=== PATIENT | female | born 1955 | race Caucasian/White ===

== ENCOUNTER 2021-02-23 05:39 | Inpatient (IN) ==
--- NOTE | 2021-02-09 15:47 | PAT Medication Instructions ---
Medication Instructions Date of Service February 09, 2021 Home Medications trazodone 150 mg tablet 150 mg PO HS venlafaxine 150 mg capsule,extended release 24 hr 150 mg PO QAM potassium chloride 20 mEq tablet,extended release(part/cryst) 20 meq PO QAM Keto 2 cap PO HS bumetanide 1 mg tablet 1 mg PO QAM ibuprofen 200 mg tablet 400 - 600 mg PO Q6H PRN ASK your surgeon for instructions ibuprofen 200 mg tablet 400 - 600 mg PO Q6H PRN STOP taking 2 weeks before surgery (or as soon as possible if surgery is within 2 weeks) Keto 2 cap PO HS DO NOT take the morning of surgery potassium chloride 20 mEq tablet,extended release(part/cryst) 20 meq PO QAM bumetanide 1 mg tablet 1 mg PO QAM Take morning of surgery With a small sip of water, OTHERWISE NOTHING TO EAT OR DRINK AFTER MIDNIGHT: venlafaxine 150 mg capsule,extended release 24 hr 150 mg PO QAM Take evening before surgery trazodone 150 mg tablet 150 mg PO HS Other Notes If you have any questions please call us at [phone] or [phone] or [phone] or [phone]
--- NOTE | 2021-02-13 13:52 | Anesthesiology Consultation ---
Date of Service February 13, 2021 Assessment & Plan (1) Encounter for pre-operative examination: - COVID screening: Per assessment on 02/13: Travel screen negative, no known COVID-19 positive contacts or current COVID-19 related symptoms. Surgeon arr anging preop COVID testing. Awaiting results. - PCP office visit (02/08/21): "Medically cleared for surgery pending pre-op labs/studies.. leg edema.. stable, continue current medications." Chart Review Chart Review: Acceptable Risk for Surgery (pending surgeon-ordered cardiology clearance) and Patient seen in Pre Admission Testing Teaching & Discussion Pre-Anesthesia Teaching/Discussion Notes: Instructed NPO after midnight before surgery,except medications with 15 cc of water. Medication instructions provided according to the PAT guidelines. History Surgery Operation Date: 02/23/21 09:00 Proposed Procedures p Robotic Laparoscopic Assisted Partial Left Nephrectomy - Fernandez Robles, Height/Weight Height: 5 ft 4 in Weight: 106.3 kg Allergies Allergy/AdvReac Type Severity Reaction Status Date / Time No Known Allergies Allergy Verified 02/07/21 10:41 Medications Home Medications Medication Instructions Recorded Confirmed Last Taken trazodone 150 mg tablet 150 mg PO HS 11/12/18 02/07/21 Unknown venlafaxine 150 mg 150 mg PO QAM 11/12/18 02/07/21 Unknown capsule,extended release 24 hr potassium chloride 20 mEq 20 meq PO QAM 02/01/21 02/07/21 Unknown tablet,extended release(part/cryst) Keto 2 cap PO HS 02/07/21 02/07/21 Unknown bumetanide 1 mg tablet 1 mg PO QAM 02/07/21 02/07/21 Unknown ibuprofen 200 mg tablet 400 - 600 mg PO Q6H PRN 02/07/21 02/07/21 Unknown Past Medical History Medical History Anxiety and depression GERD (gastroesophageal reflux disease) Lower extremity edema Reason for bumex Obesity Osteoarthritis Renal mass Left Exercise / Class Metabolic Activity II 4-5 Yardwork/Stairs/Walk up hill Past Family History Family History Brother Family history of diabetes mellitus Other No family history of adverse response to anesthesia No pertinent family history in first degree relatives Past Surgical History Surgical History H/O ovarian cystectomy H/O total hysterectomy History of appendectomy History of cataract surgery R/L History of section x1 History of colonoscopy History of open reduction and internal fixation (ORIF) procedure Left tibia Right femur History of tonsillectomy History of tooth extraction Past Anesthesia History No Hx of Anesthesia Complications and No Family Hx of Anesthesia Complications History of PONV No Hx of PONV and No Hx of Motion Sickness Social History Smoking Status: Current every day smoker tobacco type: cigarettes Smoking cigarettes per day: 10 cigs/day Do You Dip or Chew Tobacco: No Hx Alcohol Use: No Hx Substance Use: No substance use type: does not use Review of Systems + Palpitations (rare, stress-related). Patient denies chest pain, shortness of breath, dyspnea on exertion, fever, chills, cough, wheezing. Physical Exam Vital Signs VITALS BP 128/68 P 76 TEMP 98.6 SP02 96%RA RESP 16 PHYSICAL Full cervical extension range of motion. Full TMJ range of motion. TMD 3 finger breaths Mallampati Score 3 Dentition: upper/lower full plates Lungs: clear throughout to auscultation Cardiac: regular rate and rhythm, no murmurs noted Spine: normal Carotid arteries: negative bruit Extremities: no edema Thick neck Lab Results Anesthesia Preop Results Results Anesthesia Widget: WBC 9.44 K/uL (4.8-10.8) 02/13/21 Hgb 14.0 g/dL (12.0-16.0) 02/13/21 Hct 43.5 % (37-47) 02/13/21 Plt 370 K/uL (130-400) 02/13/21 Na 139 mmol/L (136-145) 02/13/21 K 4.4 mmol/L (3.5-5.1) 02/13/21 Cl 110 mmol/L (98-107) H 02/13/21 CO2 27 mmol/L (21-32) 02/13/21 BUN 26 mg/dl (7-18) H 02/13/21 Creat 0.99 mg/dl (0.6-1.2) 02/13/21 Glucose Level 94 mg/dl (70-99) 02/13/21 Urine Color Yellow 02/13/21 Urine Appearance Clear (Clear) 02/13/21 Urine pH 6.0 (4.5-7.5) 02/13/21 Urine Specific [place] 1.021 (1.000-1.030) 02/13/21 Urine Protein Negative (Negative) 02/13/21 Urine Glucose (UA) Negative (Negative) 02/13/21 Urine Ketones Negative (Negative) 02/13/21 Urine Blood 3+ (Negative) H 02/13/21 Urine Nitrite Negative (Negative) 02/13/21 Urine Bilirubin Negative (Negative) 02/13/21 Urine Urobilinogen Negative (Negative) 02/13/21 Urine Leukocyte Esterase Negative (Negative) 02/13/21 Urine WBC (Auto) 1-5 /hpf (0-5) 02/13/21 Urine RBC (Auto) 5-10 /hpf (0-4) H 02/13/21 Urine Hyaline Casts (Auto) 1-5 /lpf (0-5) 02/13/21 Urine Epithelial Cells (Auto) >30 /lpf (0-5) H 02/13/21 Urine Bacteria (Auto) 1+ (Negative) H 02/13/21 Blood Type A Positive 02/13/21 Antibody Screen NEGATIVE 02/13/21 Testing Electrocardiogram Date: 02/13/21 Findings: + NSR @ (66) Other Testing Chest CT (12/14/20) Several tiny left lung nodules, largest measuring 4 mm. Emphysema. 3.7 cm mixed density exophytic lesion posterior upper pole cortex of the left kidney.
[2021-02-23] MEDS ORDERED: LR 15ML/HR IV SCH (06:00)
[2021-02-23] MEDS ORDERED: ceFAZolin 2000MG 2,000 MG/15 ML SYR IV SCH (06:00)
[2021-02-23] MEDS ORDERED: HYDROmorphone INJ 2 MG/ML SYR/VIAL IV PRN (07:00)
[2021-02-23] MEDS ORDERED: ATROPINE SULFATE 0.1 MG/ML 10ML SYR IV PRN (07:00)
[2021-02-23] MEDS ORDERED: ePHEDrine sulfate 50 MG/ML AMP IV PRN (07:00)
[2021-02-23] MEDS ORDERED: fentaNYL citrate 100 MCG/2 ML VIAL IV PRN (07:00)
[2021-02-23] MEDS ORDERED: ONDANSETRON INJ 2 MG/ML 2 ML VIAL IV PRN ×2 (07:00→15:51)
[2021-02-23] MEDS ORDERED: BUPIVACAINE 0.5 % 5 MG/1 ML MPF 30ML VIAL ONE (07:06)
--- NOTE | 2021-02-23 07:11 | History & Physical Bridge Note ---
Date of Service February 23, 2021 History & Physical Bridge Note I have examined the patient, reviewed the History & Physical and in the interval since the performance of the History & Physical I have noted the following changes of clinical significance: no changes noted
[2021-02-23] MEDS ORDERED: ROCURONIUM BROMIDE 10 MG/ML 5 ML VIAL IV ONE ×8 (07:12→11:52)
[2021-02-23] MEDS ORDERED: PROPOFOL IV EMULSION 10 MG/ML 20 ML VIAL IV ONE (07:12)
[2021-02-23] MEDS ORDERED: fentaNYL citrate 100 MCG/2 ML VIAL ONE (07:13)
[2021-02-23] MEDS ORDERED: MIDAZOLAM HCL 1 MG/ML 2ML VIAL ONE (07:13)
[2021-02-23] MEDS ORDERED: ONDANSETRON INJ 2 MG/ML 2 ML VIAL ONE ×2 (07:16→12:11)
[2021-02-23] MEDS ORDERED: ePHEDrine sulfate 50 MG/ML SYR ONE (08:29)
[2021-02-23] MEDS ORDERED: PHENYLEPHRINE 100MCG/ML 5ML SYR ONE (08:29)
[2021-02-23] MEDS ORDERED: HYDROmorphone INJ 2 MG/ML SYR/VIAL ONE (10:10)
[2021-02-23] MEDS ORDERED: SURGICEL ABSORB HEMOSTAT 2IN X 14IN TOP ONE ×2 (10:13→11:44)
[2021-02-23] MEDS ORDERED: TISSEEL FIBRIN SEALANT 10ML TOP ONE (11:44)
[2021-02-23] MEDS ORDERED: FLOSEAL HEMOSTATIC MATRIX 10ML TOP ONE (11:44)
[2021-02-23] MEDS ORDERED: GLYCOPYRROLATE 0.2 MG/ML VIAL ONE (11:51)
[2021-02-23] MEDS ORDERED: NEOSTIGMINE METHYLSULFATE 1 MG/ML 10ML VIAL ONE (11:51)
--- NOTE | 2021-02-23 12:35 | Operative Report ---
PG Post Operative Report Pre & Post Diagnosis Operation Date: 02/23/21 07:30 Pre-Op Diagnosis: Left Renal Mass, Left Adrenal Mass Post-Op Diagnosis: Left Renal Mass, Left Adrenal Mass I identified the patient and participated in the time-out.: Yes Procedure Operation Date: 02/23/21 07:30 Actual Procedures p Robotic Assisted Laparoscopic Left Partial Nephrectomy and Left Adrenalectomy - Fernandez Robles, Surgeon Fernandez Robles, II, DO Exhibit [employer] Estimated Blood Loss 60 Findings Consistent with Post-Op Diagnosis Posterior Upper pole renal mass on left with complex renal vein. Large Left Adrenal Mass Specimens Renal mass. Adrenal Gland/Mass Drains 18 Fr Benito catheter. Anesthesia Type General Complications none Disposition Disposition: Recovery Room Indications Patient with enhancing left renal mass and large left adrenal mass >4cm. 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 Did not have any significant elevation of plasma free metanephrines. Risk and benefits were discussed at length. Patient elected to undergo robotic assisted laparoscopic partial nephrectomy. Description of Procedure The patient was brought to the operative suite and placed under general endotracheal intubation anesthesia in the supine position. The patient was tr ansferred to the lateral position with the operative side up. At this point, the patient prepped and draped in the usual sterile fashion and a timeout was completed. Preoperative antibiotics of Ancef 2 grams had been given. JESUS MANUEL's and SCD's were placed on the patient's lower extremities. A catheter was placed using sterile technique. With the time out completed the patient was flexed and the skin was marked. The lateral camera port site was anesthetized. A small incision was made into the skin and subcutaneous tissues. A Varess needle was selected and placed. The needle was easily moved and it was irrigated and aspirated without any issues or concerns for placement. Insufflation commenced. Once insufflated, A camera port was placed. The cavity was insufflated to 12-15 mmHG. A laparoscopic camera was placed and the abdominal cavity inspected. No bleeding, injury, or other concerning features were noted. At this point, the skin was marked for port placement and 3 x 8mm working ports were placed. The skin was anesthetized down to fascia and an approx 1cm incision was made to place the 3 x 8mm ports. Two 12 mm university administrative assistant ports were also placed in similar fashion under direct visualization in the midline superior to the umbilicus. The robot was positioned and docked. The camera was placed and all trocars were positioned under direct visualization. ROSLYN Wilcox was integral in port placement, camera utilization, and docking procedure. She remained in sterile attire and then proceeded to assist the remainder of the case. Dr. Mohsen Nova was readily available for assistance during clark portions of the proceeding procedure. Dr. Nova assumed the assistant press operator offset role for the major portion of renal mass removal, vessel clamping, and closure of the kidney. At this point, I transitioned to the robotic console. The colon was mobilized medially to expose the retroperitoneum and the area assessed. Adhesions were freed to allow mobilization. A small amount of adhesions were noted from the colon and were freed. These were dissected with blunt technique. Cautery was used to assist dissection and control bleeding. The retroperitoneal fat was assessed. The ureter and gonadal vein were identified. The ureter was isolated and dissection was taken superiorly. This was followed to the renal pelvis. The Renal Artery and Vein were then cleaned and exposed. The renal vein was found to be significantly complex with multiple branches. The adrenal vein was isolated and fully exposed. This was dissected and freed moving towards the large left adrenal mass. The adrenal mass was fully assessed. After full exposure of the adrenal vein coming off of the left renal vein, the anesthesia team was alerted and had been adequately hydrating the patient. The adrenal vein was then clipped with hemolock clips x3. No change in blood pressure heart rate or other vascular response after clipping the adrenal vein. This was then cut and the adrenal gland was dissected moving across the posterior and inferior border. Multiple small vessels were ligated and cauterized. No considerable issues or problems. Moderate amount of adhesion was found to the lateral inferior portion. These were then freed. Care was taken to dissect completely around the posterior and inferior section. The superior section was then dissected free taking care to avoid excess manipulation near the spleen and the posterior portion. No major areas of bleeding. Again at the lateral border there was more significant adhesions to the spleen and abdominal wall. These were all freed. The adrenal mass and adrenal gland were then secured in a Endo Catch bag and attention was taken back to the renal vasculature. A Surgicel hemostatic sheet was placed in the adrenal wound bed. The renal vein and artery were then assessed and good clamp placement was assessed and good access was achieved. The ultrasound probe was then placed into the abdomen to further assess the location of the renal mass. The mass was found to be considerably more posterior and superior than expected with the patient in the lateral position. Due to this, in order to excise the mass the kidney would need to be flipped on its axis. Careful dissection was then used in order to free the splenorenal attachments as well as the lateral edge. The entire kidney was dissected and mobilized with the perirenal fat remaining in place. Once the kidney was able to be flipped on its axis the ultrasound probe was able to identify the mass and considerably better angle and access was achieved. The perirenal fat directly lateral to the kidney mass was then dissected. The mass and surrounding tissues were exposed. The kidney was then further mobilized. The ultrasound probe was placed and the mass further examined. The edges were marked. Dr. Nova was utilized as a assistant press operator offset for this portion starting with the placement of clamps until closure of the nephrotomy. The Vessels were assessed a final time. 2 x Bulldog clamps were placed on the artery as well as a early branch of the renal artery and 1 x Bulldog clamp on the vein medial to the branches. The kidney appropriately blanched. The previously marked margins were used to start the incision into the kidney. The mass was completely excised without evidence of penetrating into the capsule of the mass. The base of resection bed was assessed and small vessels were cauterized. The collecting system did not appear to be opened in any area. A barbed suture was selected and the nephrotomy closed. 3-0 Vicryl sutures were then used to close the edges of the elliptical opening. A total of 2 x vicryl sutures were used to close and bolster the edges. At this point, the bulldog clamps were removed. Warm ischemia time, in total, was 20 minutes. The kidney was full assessed after removal of clamps. No bleeding or other major areas of concern. Weck and Hemolock clips were used to bolster and tightened to approximate the edges. Surgicel hemostatic agent sheets were placed along the adrenal wound bed and on the incised kidney edge. Tisseel and FloSeal hemostatic agents were also placed. These hemostatic agent was also placed on the vessels. No major bleeding or other issues. Gerota's tissues were replaced utilizing clips to cover the area. The excised mass was placed in an endocatch bag for removal. The entire dissection space was inspected one final time. No bleeding or injuries or areas of concern were noted. No tumor or other concerning features were noted. At this point, the robot was undocked and moved away from the patient. The port sites were all assessed laparoscopically. The endoscopic bag was moved into the lower university administrative assistant port. The 2 x 12 mm port sites in the midline were then marked and the incisions connected. The other ports were assessed and no issues observed. The university administrative assistant ports were pened further exposing fascia which was then opened in order to removed the mass within the bag. A running 1-0 PDS suture was used to close fascia. A 0 Vicryl was used to close the subcutaneous fat/tissues. The skin at each site was closed with a stapler. The area was cleaned and bandages placed on each incision. The patient was cleaned and bandaged. The patient was moved back into the supine position The patient was cleaned, aroused from anesthesia, and transferred to the pacu in stable condition having tolerated the procedure well with no complications. I was present and participated in all aspects of the procedure. Mohsen Nova MD was integral in the major portion of the procedure as above. ROSLYN Wilcox was critical in the portions as mentioned above. Will plan to observe postoperatively and monitor. Benito to be removed in the morning. I attest to the content of the Intraoperative Record and any orders documented therein. Any exceptions are noted below.
[2021-02-23 13:16] LABS: Basophils # (auto) 0.02 K/uL (0-0.2); Basophils % (auto) 0.1 %; Hematocrit (blood only) 41.2 % (37-47); Hemoglobin 13.1 g/dL (12.0-16.0); Immature Granulocytes # (auto) 0.06 K/uL (0.00-0.02); Immature Granulocytes % (auto) 0.3 %; Lymphocytes # (auto) 1.35 K/uL (1.2-3.4); Lymphocytes % (auto) 6.7 %; Mean Corpuscular Hemoglobin 30.8 pg (25-34); Mean Corpuscular Volume 96.9 fL (80-100); Mean Platelet Volume 9.4 fL (7.4-10.4); Monocytes # (auto) 1.06 K/uL (0.11-0.59); Monocytes % (auto) 5.2 %; Neutrophils # (auto) 17.71 K/uL (1.4-6.5); Neutrophils % (auto) 87.7 %; Platelet Count 341 K/uL (130-400); RDW Coefficient of Variation 14.9 % (11.5-14.5); RDW Standard Deviation 52.5 fL (36.4-46.3); Red Blood Count 4.25 M/uL (4.2-5.4)
[2021-02-23 13:19] LABS: Mean Corpuscular Hgb Conc 31.8 g/dL (32-36)
[2021-02-23 13:38] LABS: BUN Creatinine Ratio 12.8 (10-20); Calcium 8.2 mg/dl (8.5-10.1); Creatinine Clr Calc Pharmacy 48.2 ml/min; Est GFR (African American) 47.4 ml/min; Est GFR (Non-African American) 40.9 ml/min; Potassium 4.3 mmol/L (3.5-5.1)
[2021-02-23] MEDS ORDERED: ACETAMINOPHEN 1,000 MG/100 ML VIAL IV STA (14:40)
[2021-02-23] MEDS ORDERED: ACETAMINOPHEN 325 MG TAB PO PRN (15:51)
[2021-02-23] MEDS ORDERED: MoRPHine SULFATE 4 MG/ML 1 ML CARP\\VIAL IV PRN (15:51)
[2021-02-23] MEDS ORDERED: MoRPHine SULFATE 2 MG/ML CARP IV PRN (15:51)
[2021-02-23] MEDS ORDERED: POTASSIUM CHLORIDE CRTAB 20 MEQ TABCR PO SCH (15:51)
--- NOTE | 2021-02-23 15:58 | Anesthesiology Progress Note ---
Date of Service February 23, 2021 Anesthesia Post Procedure Vital Signs Vital Signs: Temp Pulse Pulse Resp BP Pulse Ox 02/23/21 15:15 36.8 C 87 18 117/67 94 02/23/21 15:05 36.9 C 81 20 119/59 L 94 02/23/21 14:55 86 18 109/53 L 94 02/23/21 14:45 90 20 94/69 L 95 02/23/21 14:35 84 20 127/55 L 96 02/23/21 14:25 86 19 109/62 97 02/23/21 14:15 36.7 C 85 16 143/56 H 96 02/23/21 14:05 87 16 124/64 97 02/23/21 13:55 85 12 137/54 L 95 02/23/21 13:45 81 16 126/49 L 91 02/23/21 13:35 79 20 129/53 L 93 02/23/21 13:25 77 22 129/53 L 96 02/23/21 13:15 77 26 H 133/56 L 95 02/23/21 13:05 73 20 127/49 L 96 02/23/21 12:55 73 20 125/52 L 97 02/23/21 12:48 36.1 C L 77 16 133/55 L 96 02/23/21 06:12 37.2 C 78 20 166/58 H 97 Pain Intensity Abdomen: Pain Intensity: 8 Transfer of Care Handoff Completed per policy Notes Mental Status: alert / awake / arousable and participated in evaluation Patient Amnestic to Procedure: Yes Nausea / Vomiting: adequately controlled Pain: adequately controlled Airway Patency, RR, SpO2: stable & adequate BP & HR: stable & adequate Hydration State: stable & adequate Anesthetic Complications: no major complications apparent and Pt Satisfied with anesthetic care
[2021-02-23] MEDS: LACTATED RINGER'S 1,000 ML IV SCH (16:09)
[2021-02-23] MEDS: ceFAZolin 2000MG 2,000 MG/15 ML SYR IV SCH (16:42)
[2021-02-23] MEDS: oxyCODONE HCL IR 5 MG TAB (IMMEDIATE RELEASE) PO PRN (18:09)
[2021-02-23] MEDS: NYSTATIN CR 15 GM TUBE EXT SCH (19:37)
[2021-02-23] MEDS: HEPARIN SOD 5,000 UNIT/0.5 ML VIAL SQ SCH (19:37)
[2021-02-23] MEDS: traZODone HCL 50 MG TAB PO SCH (19:37)
[2021-02-24] MEDS: oxyCODONE HCL IR 5 MG TAB (IMMEDIATE RELEASE) PO PRN ×3 (00:34→20:10)
[2021-02-24] MEDS: NICOTINE 14 MG/24 HR PATCH TD SCH ×2 (00:34→07:23)
[2021-02-24] MEDS: ceFAZolin 2000MG 2,000 MG/15 ML SYR IV SCH (00:35)
[2021-02-24] MEDS: LACTATED RINGER'S 1,000 ML IV SCH ×3 (01:55→23:34)
[2021-02-24] MEDS ORDERED: LR 15ML/HR IV SCH (06:00)
[2021-02-24] MEDS ORDERED: ceFAZolin 2000MG 2,000 MG/15 ML SYR IV SCH (06:00)
[2021-02-24] MEDS: NYSTATIN CR 15 GM TUBE EXT SCH ×2 (07:22→20:08)
[2021-02-24] MEDS: HEPARIN SOD 5,000 UNIT/0.5 ML VIAL SQ SCH ×2 (07:23→20:08)
[2021-02-24] MEDS: VENLAFAXINE HCL XR 150 MG CAPXR PO SCH (07:23)
[2021-02-24] MEDS: BUMETANIDE 1 MG TAB PO SCH (07:23)
--- NOTE | 2021-02-24 07:54 | Urology Progress Note ---
Date of Service February 24, 2021 Assessment & Plan (1) Adrenal mass: (2) Renal mass: Plan: 65 year-old female patient who is POD #1 robotic assisted laparoscopic left partial nephrectomy and left adrenalectomy with Dr. Robles. -Patient doing well post-procedure, clinically progressing as expected. -She is afebrile, vital signs stable. -Labs reviewed - white count improved, creatinine 1.55 this AM. -Plan to advance diet as tolerated. -Discontinue huynh catheter this AM. -Encourage ambulation and OOB to chair this AM. -Continue with pain control, supportive care, and close monitoring. -Will consult hospital medicine to assist in postoperative medical management. -Plan for home in 1-2 days presuming she continues to clinically progress. -Expected course reviewed with patient, all questions answered. Admission and Anticipated Discharge Date Admission Date: February 23, 2021 Subjective POD #1 robotic assisted laparoscopic left partial nephrectomy and left adrenalectomy with Dr. Robles. Patient examined at bedside this AM. She feels well overall post procedure. Alert and awake, comfortable. Reports pain as tolerable with PO pain medications. Discomfort is mostly in medial abdomen. Denies flank pain. Has not been out of bed since procedure. Denies fevers or chills. Tolerating clear liquid diet without nausea or vomiting. Requesting more solid foods this AM. Has not passed flatus. Denies dizziness/lightheadedness. No chest pain or shortness of breath. Chart review: Afebrile, blood pressure and heart rate stable. Wbc 11.61 (previously 20.20) Hgb 11.7 Creatinine 1.55 (previously 1.34) Huynh output overnight 450cc. Denies additional urologic concerns today. Review of Systems Constitutional: as per Subjective / HPI; no fever and no chills Respiratory: as per Subjective / HPI Cardiovascular: as per Subjective / HPI Gastrointestinal: as per Subjective / HPI; no nausea and no vomiting Genitourinary: as per Subjective / HPI Physical Exam Constitutional: well developed and well nourished; no acute distress and not ill appearing Respiratory: normal respiratory effort and able to speak in complete sentences; no respiratory distress and no audible wheezes Gastrointestinal (Abdomen): Inspection/Auscultation: abdomen normal to inspection; abdomen not distended Percussion/Palpation: abdomen nontender and no guarding Skin: Incisions appropriate and well-approximated. Lacy intact without drainage, erythema, or warmth. Psychiatric: Orientation: alert, oriented x 3 and cooperative Affect: euthymic affect Genitourinary: Huynh catheter draining clear yellow urine. Results & Data ([facility]) Vital Signs (Past 12 Hours) Vital Signs Temp Pulse Pulse Resp BP Pulse Ox 02/24/21 04:00 37.5 C 87 20 127/55 L 94 02/23/21 23:00 100 H 02/23/21 22:51 37.2 C 91 H 20 108/62 92 PG Care Time/CCT Total # of Minutes Spent Total Time Spent with Patient: Total time spent is greater than 50% in coordination of care (as documented) at patient's floor/unit and/or counseling patient: Coding Level of Care Code None Diagnoses Adrenal mass E27.8 Renal mass N28.89
[2021-02-24 08:44] LABS: Basophils # (auto) 0.01 K/uL (0-0.2); Basophils % (auto) 0.1 %; Hematocrit (blood only) 37.6 % (37-47); Hemoglobin 11.7 g/dL (12.0-16.0); Immature Granulocytes # (auto) 0.02 K/uL (0.00-0.02); Immature Granulocytes % (auto) 0.2 %; Lymphocytes # (auto) 2.67 K/uL (1.2-3.4); Mean Corpuscular Hemoglobin 30.1 pg (25-34); Mean Corpuscular Hgb Conc 31.1 g/dL (32-36); Mean Corpuscular Volume 96.7 fL (80-100); Mean Platelet Volume 9.7 fL (7.4-10.4); Monocytes # (auto) 0.88 K/uL (0.11-0.59); Monocytes % (auto) 7.6 %; Neutrophils # (auto) 8.03 K/uL (1.4-6.5); Neutrophils % (auto) 69.1 %; Platelet Count 313 K/uL (130-400); RDW Coefficient of Variation 15.1 % (11.5-14.5); RDW Standard Deviation 53.7 fL (36.4-46.3); Red Blood Count 3.89 M/uL (4.2-5.4); White Blood Count 11.61 K/uL (4.8-10.8)
[2021-02-24] MEDS ORDERED: NICOTINE 14 MG/24 HR PATCH TD SCH (09:00)
[2021-02-24 09:09] LABS: BUN Creatinine Ratio 11.3 (10-20); Calcium 7.9 mg/dl (8.5-10.1); Creatinine Clr Calc Pharmacy 44.3 ml/min; Est GFR (African American) 39.7 ml/min; Est GFR (Non-African American) 34.3 ml/min; Potassium 3.9 mmol/L (3.5-5.1)
--- NOTE | 2021-02-24 10:59 | Hospitalist Consultation ---
Date of Consultation February 24, 2021 Assessment & Plan (1) Adrenal mass: Patient underwent robotic laparoscopic assisted left partial nephrectomy on 02/23/[address] Fernandez Robles. Certainly we will watch the patient is electrolytes in the blood pressure in the postoperative period currently her blood pressure stable and electrolytes are similarly stable (2) Anxiety and depression: Continue Effexor and trazodone at bedtime (3) Lower extremity edema: Deviously on Bumex and potassium patient's creatinine is trended upward will hold Bumex and follow urine creatinine, patient remains on lactated R amrit's (4) DVT prophylaxis: Surgery is elective for heparin for DVT prevention History of Present Illness Attending Physician: Fernandez Robles, II, DO History of Present Illness PT underwent robotic laparoscopic assisted left partial nephrectomy 02/23/21 for adrenal mass. Typically takes bumex and potassium, plus typically takes effexor and trazadone hs Patient has some bloating abdominal discomfort has flatus no bowel movement currently being medicated for pain by nursing staff Allergies Allergy/AdvReac Type Severity Reaction Status Date / Time No Known Allergies Allergy Verified 02/23/21 06:08 Home Medications Medication Instructions Recorded Confirmed Type trazodone 150 mg tablet 150 mg PO HS 11/12/18 02/23/21 History venlafaxine 150 mg 150 mg PO QAM 11/12/18 02/23/21 History capsule,extended release 24 hr potassium chloride 20 mEq 20 meq PO UD 02/01/21 02/23/21 History tablet,extended release(part/cryst) Keto 2 cap PO HS 02/07/21 02/23/21 History bumetanide 1 mg tablet 1 mg PO QAM 02/07/21 02/23/21 History ibuprofen 200 mg tablet 400 - 600 mg PO Q6H PRN 02/07/21 02/23/21 History Patient History Medical History (Updated 02/24/21 @ 11:08 by Rey Teresa MD) Anxiety and depression GERD (gastroesophageal reflux disease) Lower extremity edema Reason for bumex Obesity Osteoarthritis Renal mass Left Surgical History H/O ovarian cystectomy H/O total hysterectomy History of appendectomy History of cataract surgery R/L History of section x1 History of colonoscopy History of open reduction and internal fixation (ORIF) procedure Left tibia Right femur History of tonsillectomy History of tooth extraction Family History Brother Family history of diabetes mellitus Other No family history of adverse response to anesthesia No pertinent family history in first degree relatives Social History Smoking Status: Current every day smoker Cigarettes Per Day: 10 cigs/day; Second Hand Exposure: Yes; Do You Dip or Chew Tobacco: No; Tobacco Cessation Education Requested by Patient: No Hx Alcohol Use: No Hx Substance Use: No Preferred Language: Sinhala Visual Impairment: No Limitations Hearing Ability: Normal Economics Lecturer Required: No Beliefs That Will Affect Care: None Current Living Situation: Alone current occupational status: retired Feels Safe at Home: Yes Safety Concerns: Feels Safe At This Time Assistive Devices: None Assistive Devices Comment: READING GLASSES Review of Systems Review of Systems: Mild distress and fatigue no headache, no visual changes no speech or swallowing issues no chest pain, pressure or palpitations no shortness of breath, cough or wheezes Anterior abdominal pain dull in nature no nausea no vomiting constipation no dysuria, hematuria or frequency no focal joint pain or swelling Reminder back pain no CV angle tenderness no bruising, bleeding or rashes no focal signs of weakness or numbness or altered sensation no complaints of anxiety or depression.. Physical Exam Physical Exam: The patient appeared well nourished and normally developed. Vital signs as documented. Head exam is normocephalic atraumatic Neck is without JVD, thyromegaly, or carotid bruits. Lungs are clear to auscultation, no focal loss of breath sounds Cardiac exam, Rhythm is regular.. No murmurs, rubs or gallops. Abdominal exam reveals hypoactive to normal bowel sounds, soft mild tenderness no significant bruising Extremities are nonedematous and both pedal pulses are present Neurologic exam is alert and oriented, no focal loss of strength or sensation Skin is without bruises or rashes Psychologically is without concerns for anxiety or depression Results & Data Results & Data ([facility]) Vital Signs (Past 12 Hours) Vital Signs Temp Pulse Pulse Pulse Resp BP Pulse Ox 02/24/21 07:57 98.8 F 86 20 110/64 93 02/24/21 04:00 99.5 F 87 20 127/55 L 94 02/23/21 23:00 100 H PG Care Time/CCT Total # of Minutes Spent Total Time Spent with Patient: Total time spent is greater than 50% in coordination of care (as documented) at patient's floor/unit and/or counseling patient: Coding Level of Care Code 80325 Inpt Consult Level 3 Diagnoses Adrenal mass E27.8 Anxiety and depression F41.9; F32.9 Lower extremity edema R60.0 DVT prophylaxis Z29.9
[2021-02-24] MEDS: traZODone HCL 50 MG TAB PO SCH (20:09)
[2021-02-25] MEDS: oxyCODONE HCL IR 5 MG TAB (IMMEDIATE RELEASE) PO PRN ×2 (04:19→17:23)
[2021-02-25] MEDS ORDERED: POLYETHYLENE (MIRALAX) 17 GM PACK PO PRN (04:37)
[2021-02-25] MEDS ORDERED: bisacodyL 10 MG SUPP PR PRN (04:37)
[2021-02-25] MEDS ORDERED: bisacodyL 10 MG SUPP PR ONE (04:40)
[2021-02-25 05:54] LABS: Basophils # (auto) 0.02 K/uL (0-0.2); Basophils % (auto) 0.1 %; Eosinophils # (auto) 0.01 K/uL (0-0.5); Eosinophils % (auto) 0.1 %; Hematocrit (blood only) 35.3 % (37-47); Hemoglobin 11.3 g/dL (12.0-16.0); Immature Granulocytes # (auto) 0.05 K/uL (0.00-0.02); Immature Granulocytes % (auto) 0.3 %; Lymphocytes # (auto) 2.87 K/uL (1.2-3.4); Mean Corpuscular Hemoglobin 30.4 pg (25-34); Mean Corpuscular Volume 94.9 fL (80-100); Mean Platelet Volume 9.7 fL (7.4-10.4); Monocytes # (auto) 1.66 K/uL (0.11-0.59); Monocytes % (auto) 9.9 %; Neutrophils # (auto) 12.23 K/uL (1.4-6.5); Neutrophils % (auto) 72.6 %; Platelet Count 288 K/uL (130-400); RDW Coefficient of Variation 15.3 % (11.5-14.5); RDW Standard Deviation 53.9 fL (36.4-46.3); Red Blood Count 3.72 M/uL (4.2-5.4); White Blood Count 16.84 K/uL (4.8-10.8)
[2021-02-25 06:29] LABS: BUN Creatinine Ratio 11.8 (10-20); Creatinine Clr Calc Pharmacy 47.6 ml/min; Est GFR (African American) 43.1 ml/min; Est GFR (Non-African American) 37.2 ml/min; Potassium 3.8 mmol/L (3.5-5.1)
[2021-02-25] MEDS: VENLAFAXINE HCL XR 150 MG CAPXR PO SCH (08:27)
[2021-02-25] MEDS: NYSTATIN CR 15 GM TUBE EXT SCH ×2 (08:27→20:16)
[2021-02-25] MEDS: HEPARIN SOD 5,000 UNIT/0.5 ML VIAL SQ SCH ×2 (08:27→20:16)
[2021-02-25] MEDS: NICOTINE 14 MG/24 HR PATCH TD SCH (08:28)
[2021-02-25] MEDS ORDERED: POTASSIUM CHLORIDE CRTAB 20 MEQ TABCR PO SCH (09:00)
[2021-02-25] MEDS: LACTATED RINGER'S 1,000 ML IV SCH ×2 (09:41→09:42)
--- NOTE | 2021-02-25 10:24 | Urology Progress Note ---
Date of Service February 25, 2021 Assessment & Plan (1) Adrenal mass: (2) Renal mass: Plan: 65 year-old female patient who is POD #1 robotic assisted laparoscopic left partial nephrectomy and left adrenalectomy with Dr. Robles. - -Labs reviewed - white count worsening - 16 -Continue regular diet -Encourage ambulation and OOB to chair this AM. -Continue with pain control, supportive care, and close monitoring. -CXR, empiric ceftriaxone started -DC fluids Admission and Anticipated Discharge Date Admission Date: February 23, 2021 Subjective POD #1 robotic assisted laparoscopic left partial nephrectomy and left adrenalectomy with Dr. Robles. Patient examined at bedside this AM. Alert and awake, comfortable. Reports pain as tolerable with PO pain medications. Denies fevers or chills. Tolerating regular diet + Gas, small BM No chest pain or shortness of breath. Recieved ISB this AM voiding without issues Chart review: Afebrile, blood pressure and heart rate stable. Wbc - rising to 16 Denies additional urologic concerns today. Physical Exam Physical Exam: NAD labored breathing tachy soft, NT, dressing removed - incision c/d/i ext without edema, NT Results & Data ([facility]) Vital Signs (Past 12 Hours) Vital Signs Temp Pulse Pulse Pulse Resp BP Pulse Ox 02/25/21 07:49 91 H 02/25/21 07:00 36.9 C 99 H 20 143/74 H 85 L 02/25/21 04:08 37.1 C 100 H 20 130/77 90 02/25/21 00:18 37.7 C H 77 20 116/55 L 90 02/24/21 22:30 100 H PG Care Time/CCT Total # of Minutes Spent Total Time Spent with Patient: Total time spent is greater than 50% in coordination of care (as documented) at patient's floor/unit and/or counseling patient: Coding Level of Care Code None Diagnoses Adrenal mass E27.8 Renal mass N28.89
--- NOTE | 2021-02-25 10:25 | Hospitalist Progress Note ---
Date of Service February 25, 2021 Assessment & Plan (1) Respiratory failure with hypoxia: Plan: Patient is acute respiratory failure with hypoxia. She does have a significant tobacco use history. She may have beginnings of some COPD. She does not have significant hyperinflation on chest x-ray but there is some mild pulmonary vascular congestion. Her Bumex for which she states she takes for lower extremity edema was held in the perioperative period and she was given fluids postoperatively. Subsequently we will give her a 0.5 mg dose of Bumex now institute her normal 1 mg Bumex in the morning starting on 26 February. We will add Combivent Respimat 4 times daily and continue to encourage incentive spirometry (2) Adrenal mass: Plan: Patient underwent robotic laparoscopic assisted left partial nephrectomy on 02/23/[address] Fernandez Robles. Certainly we will watch the patient is electrolytes in the blood pressure in the postoperative period currently her blood pressure stable and electrolytes are similarly stable (3) Anxiety and depression: Plan: Continue Effexor and trazodone at bedtime (4) Lower extremity edema: Plan: Deviously on Bumex and potassium patient's creatinine is trended upward will hold Bumex and follow urine creatinine, patient remains on lactated Ringer's (5) DVT prophylaxis: Plan: Surgery is elective for heparin for DVT prevention Admission and Anticipated Discharge Date Admission Date: February 23, 2021 Subjective Patient states she feels relatively well however she is slightly hypoxic this morning. She does have a history of a significant smoker. She says she has been smoking increasing lately. Chest x-ray shows very slight pulmonary vascular congestion. Her Bumex has been held in the perioperative period. Review of Systems Review of Systems: Mild distress and fatigue no headache, no visual changes no speech or swallowing issues no chest pain, pressure or palpitations Some shortness of breath Continues with mild anterior abdominal pain dull in nature no nausea no vomiting constipation no dysuria, hematuria or frequency no focal joint pain or swelling Reminder back pain no CV angle tenderness no bruising, bleeding or rashes no focal signs of weakness or numbness or altered sensation no complaints of anxiety or depression.. Physical Exam Physical Exam: The patient appeared well nourished and normally developed. Vital signs as documented. Head exam is normocephalic atraumatic Neck is without JVD, thyromegaly, or carotid bruits. Lungs are minutes at the bases no significant rales or wheezes Cardiac exam, Rhythm is regular.. No murmurs, rubs or gallops. Abdominal exam reveals hypoactive to normal bowel sounds, soft mild tenderness no significant bruising Extremities are nonedematous and both pedal pulses are present Neurologic exam is alert and oriented, no focal loss of strength or sensation Skin is without bruises or rashes Psychologically is without concerns for anxiety or depression Results & Data Results & Data ([facility]) Vital Signs (Past 12 Hours) Vital Signs Temp Pulse Pulse Pulse Resp BP Pulse Ox 02/25/21 07:49 91 H 02/25/21 07:00 98.4 F 99 H 20 143/74 H 85 L 02/25/21 04:08 98.8 F 100 H 20 130/77 90 02/25/21 00:18 99.9 F H 77 20 116/55 L 90 02/24/21 22:30 100 H PG Care Time/CCT Total # of Minutes Spent Total Time Spent with Patient: Total time spent is greater than 50% in coordination of care (as documented) at patient's floor/unit and/or counseling patient: Coding Level of Care Code 35857 Subseq Hosp Care Lvl 3 Diagnoses Adrenal mass E27.8 Anxiety and depression F41.9; F32.9 Lower extremity edema R60.0 DVT prophylaxis Z29.9 Respiratory failure with hypoxia J96.91
[2021-02-25] MEDS ORDERED: cefTRIAXone SODIUM 2,000 MG in DEXTROSE 5% 50 ML IV SCH (11:00)
--- NOTE | 2021-02-25 11:17 | XRay Report ---
XR chest 2V PA/lateral HISTORY: 65 years-old Female rising wbc, cough leukocytosis with cough COMPARISON: CTA chest 11/12/2018 TECHNIQUE: PA and lateral views of the chest FINDINGS: Cardiac silhouette is enlarged. Trace right and small left pleural effusions with bibasilar opacities . No pneumothorax or overt pulmonary edema. Bones of the chest appear grossly intact. IMPRESSION: Small left and trace right pleural effusions with bibasilar opacities suggestive of atele ctasis versus pneumonitis. ACT 112: Negative or not required by law. The above report was generated using voice recognition software. It may contain grammatical, syntax o r spelling errors. Electronically signed by: Shabbir Royal M.D. 02/25/2021 11:16 AM
[2021-02-25] MEDS ORDERED: BUMETANIDE 0.5 MG in SYRINGE 0 ML IV ONE (11:45)
[2021-02-25] MEDS ORDERED: IPRATROPIUM BROMIDE/ALBUTEROL respimat INH INH SCH (13:00)
[2021-02-25] MEDS: ALBUTEROL HFA 8 GM INHALER INH SCH ×2 (15:12→20:25)
[2021-02-25] MEDS: IPRATROPIUM BROMIDE HFA INHALER INH SCH ×2 (15:13→20:25)
[2021-02-25] MEDS: traZODone HCL 50 MG TAB PO SCH (20:16)
[2021-02-26] MEDS: oxyCODONE HCL IR 5 MG TAB (IMMEDIATE RELEASE) PO PRN ×3 (02:53→21:22)
[2021-02-26 07:04] LABS: Basophils # (auto) 0.02 K/uL (0-0.2); Basophils % (auto) 0.2 %; Eosinophils # (auto) 0.07 K/uL (0-0.5); Eosinophils % (auto) 0.6 %; Hematocrit (blood only) 32.8 % (37-47); Hemoglobin 10.2 g/dL (12.0-16.0); Immature Granulocytes # (auto) 0.01 K/uL (0.00-0.02); Immature Granulocytes % (auto) 0.1 %; Lymphocytes # (auto) 2.38 K/uL (1.2-3.4); Mean Corpuscular Hemoglobin 30.4 pg (25-34); Mean Corpuscular Hgb Conc 31.1 g/dL (32-36); Mean Corpuscular Volume 97.9 fL (80-100); Mean Platelet Volume 9.8 fL (7.4-10.4); Monocytes # (auto) 1.15 K/uL (0.11-0.59); Monocytes % (auto) 9.7 %; Neutrophils # (auto) 8.26 K/uL (1.4-6.5); Neutrophils % (auto) 69.4 %; Platelet Count 281 K/uL (130-400); RDW Coefficient of Variation 15.3 % (11.5-14.5); RDW Standard Deviation 55.1 fL (36.4-46.3); Red Blood Count 3.35 M/uL (4.2-5.4); White Blood Count 11.89 K/uL (4.8-10.8)
[2021-02-26 07:24] LABS: Partial Thromboplastin Ratio 1.1; Partial Thromboplastin Time 29.4 Seconds (21.0-31.0)
[2021-02-26 07:33] LABS: BUN Creatinine Ratio 12.9 (10-20); Calcium 8.2 mg/dl (8.5-10.1); Creatinine Clr Calc Pharmacy 59.3 ml/min; Est GFR (African American) 56.4 ml/min; Est GFR (Non-African American) 48.7 ml/min; Potassium 4.1 mmol/L (3.5-5.1)
[2021-02-26] MEDS: ALBUTEROL HFA 8 GM INHALER INH SCH ×2 (07:42→10:47)
[2021-02-26] MEDS: IPRATROPIUM BROMIDE HFA INHALER INH SCH ×2 (07:43→10:47)
[2021-02-26] MEDS: NICOTINE 14 MG/24 HR PATCH TD SCH (09:04)
[2021-02-26] MEDS: HEPARIN SOD 5,000 UNIT/0.5 ML VIAL SQ SCH ×2 (09:06→21:26)
[2021-02-26] MEDS: VENLAFAXINE HCL XR 150 MG CAPXR PO SCH (09:06)
[2021-02-26] MEDS: NYSTATIN CR 15 GM TUBE EXT SCH ×2 (09:06→21:24)
--- NOTE | 2021-02-26 10:37 | Urology Progress Note ---
Date of Service February 26, 2021 Assessment & Plan (1) Adrenal mass: (2) Renal mass: Plan: 65 year-old female patient who is POD #1 robotic assisted laparoscopic left partial nephrectomy and left adrenalectomy with Dr. Robles. - -Labs reviewed - white count improved today -Continue regular diet -Encourage ambulation and OOB. -Continue with pain control, supportive care, and close monitoring. -will switch ceftriaxone to empiric oral coverage. -labs in the AM possible DC tomorrow Admission and Anticipated Discharge Date Admission Date: February 23, 2021 Subjective Patient feels better today. Yesterday her WBC went up - CXR with no definitive pneumonia. She was diuresed further due to her lungs appearing wet. She reports that her breathing has improved today. She is on NC 2L. She has been on IV ceftriaxone since yesterday and her Wbc went down to 11 today. She is ambulating. + flatus. Pain is controlled. Review of Systems Constitutional: as per Subjective / HPI; no fever and no chills Respiratory: as per Subjective / HPI Cardiovascular: as per Subjective / HPI Gastrointestinal: as per Subjective / HPI; no nausea and no vomiting Genitourinary: as per Subjective / HPI Physical Exam Physical Exam: NAD labored breathing tachy soft, NT, incision c/d/i ext without edema, NT Results & Data ([facility]) Vital Signs (Past 12 Hours) Vital Signs Temp Pulse Pulse Resp BP BP Pulse Ox 02/26/21 09:11 36.8 C 88 16 131/63 96 02/26/21 07:43 80 18 96 02/26/21 07:21 74 02/26/21 03:24 36.8 C 86 16 128/78 95 02/25/21 23:00 37.1 C 85 20 143/75 H 93 PG Care Time/CCT Total # of Minutes Spent Total Time Spent with Patient: Total time spent is greater than 50% in coordination of care (as documented) at patient's floor/unit and/or counseling patient: Coding Level of Care Code None Diagnoses Adrenal mass E27.8 Renal mass N28.89
[2021-02-26] MEDS: BUMETANIDE 1 MG TAB PO SCH (10:56)
--- NOTE | 2021-02-26 11:08 | Hospitalist Progress Note ---
Date of Service February 26, 2021 Assessment & Plan (1) Respiratory failure with hypoxia: Plan: Resolved acute respiratory failure with hypoxia. She does have a significant tobacco use history. She may have beginnings of some COPD. However She does not have significant hyperinflation on chest x-ray, now off oxygen will stop combivent, councelled on smoking cessation. mild pulmonary vascular congestion. Her Bumex for which she states she takes for lower extremity edema was held in the perioperative period and she was given fluids postoperatively. Subsequently we will give her a 0.5 mg dose of Bumex now institute her normal 1 mg Bumex in the morning starting on 26 February. She has great improvement in exam and clinically continue bumex. May consider Echo as outpt (2) Adrenal mass: Plan: Patient underwent robotic laparoscopic assisted left partial nephrectomy on 02/23/[address] Fernandez Robles. Certainly we will watch the patient is electrolytes in the blood pressure in the postoperative period currently her blood pressure stable and electrolytes remain stable (3) Anxiety and depression: Plan: Continue Effexor and trazodone at bedtime (4) Lower extremity edema: Plan: baseline (5) DVT prophylaxis: Plan: Surgery is elective for heparin for DVT prevention Admission and Anticipated Discharge Date Admission Date: February 23, 2021 Subjective pt feels much improved, off oxygen, dedicated to stop smoking especially with concern for PAD Review of Systems Review of Systems: Mild distress and fatigue no headache, no visual changes no speech or swallowing issues no chest pain, pressure or palpitations Some shortness of breath, but lessened and no cough Continues with mild anterior abdominal pain dull in nature no nausea no vomiting constipation no dysuria, hematuria or frequency no focal joint pain or swelling Reminder back pain no CV angle tenderness no bruising, bleeding or rashes no focal signs of weakness or numbness or altered sensation no complaints of anxiety or depression.. Physical Exam Physical Exam: The patient appeared well nourished and normally developed. Vital signs as documented. Head exam is normocephalic atraumatic Neck is without JVD, thyromegaly, or carotid bruits. Lungs are minutes at the bases no significant rales or wheezes Cardiac exam, Rhythm is regular.. No murmurs, rubs or gallops. Abdominal exam reveals normal bowel sounds, soft non tender Extremities are nonedematous and both pedal pulses are present Neurologic exam is alert and oriented, no focal loss of strength or sensation Skin is without bruises or rashes Psychologically is without concerns for anxiety or depression Results & Data Results & Data ([facility]) Vital Signs (Past 12 Hours) Vital Signs Temp Pulse Pulse Resp BP BP Pulse Ox 02/26/21 10:47 80 18 91 02/26/21 09:11 98.2 F 88 16 131/63 96 02/26/21 07:43 80 18 96 02/26/21 07:21 74 02/26/21 03:24 98.2 F 86 16 128/78 95 PG Care Time/CCT Total # of Minutes Spent Total Time Spent with Patient: Total time spent is greater than 50% in coordination of care (as documented) at patient's floor/unit and/or counseling patient: Coding Level of Care Code 18704 Subseq Hosp Care Lvl 2 Diagnoses Respiratory failure with hypoxia J96.91 Adrenal mass E27.8 Anxiety and depression F41.9; F32.9 Lower extremity edema R60.0 DVT prophylaxis Z29.9
[2021-02-26] MEDS ORDERED: ALBUTEROL HFA 8 GM INHALER INH PRN (12:01)
[2021-02-26] MEDS ORDERED: IPRATROPIUM BROMIDE HFA INHALER INH PRN (12:02)
[2021-02-26] MEDS: traZODone HCL 50 MG TAB PO SCH (21:24)
[2021-02-26] MEDS: cefUROXime axetil 500 MG TAB PO SCH (21:25)
[2021-02-26 23:20] VITALS: TEMP 98.6
[2021-02-27] MEDS: oxyCODONE HCL IR 5 MG TAB (IMMEDIATE RELEASE) PO PRN (02:51)
[2021-02-27 07:20] LABS: Basophils # (auto) 0.02 K/uL (0-0.2); Basophils % (auto) 0.2 %; Eosinophils # (auto) 0.24 K/uL (0-0.5); Eosinophils % (auto) 2.2 %; Hematocrit (blood only) 35.1 % (37-47); Hemoglobin 10.8 g/dL (12.0-16.0); Immature Granulocytes # (auto) 0.02 K/uL (0.00-0.02); Immature Granulocytes % (auto) 0.2 %; Lymphocytes # (auto) 2.69 K/uL (1.2-3.4); Lymphocytes % (auto) 24.9 %; Mean Corpuscular Hemoglobin 30.4 pg (25-34); Mean Corpuscular Hgb Conc 30.8 g/dL (32-36); Mean Corpuscular Volume 98.9 fL (80-100); Mean Platelet Volume 9.9 fL (7.4-10.4); Monocytes # (auto) 1.12 K/uL (0.11-0.59); Monocytes % (auto) 10.4 %; Neutrophils # (auto) 6.71 K/uL (1.4-6.5); Neutrophils % (auto) 62.1 %; Platelet Count 365 K/uL (130-400); RDW Coefficient of Variation 15.2 % (11.5-14.5); RDW Standard Deviation 55.2 fL (36.4-46.3); Red Blood Count 3.55 M/uL (4.2-5.4)
[2021-02-27 07:28] LABS: Partial Thromboplastin Ratio 1.1; Partial Thromboplastin Time 29.4 Seconds (21.0-31.0)
[2021-02-27 07:43] LABS: BUN Creatinine Ratio 12.4 (10-20); Calcium 8.1 mg/dl (8.5-10.1); Creatinine Clr Calc Pharmacy 56.6 ml/min; Est GFR (African American) 53.1 ml/min; Est GFR (Non-African American) 45.8 ml/min; Potassium 3.6 mmol/L (3.5-5.1)
[2021-02-27] MEDS: cefUROXime axetil 500 MG TAB PO SCH (07:57)
[2021-02-27] MEDS: VENLAFAXINE HCL XR 150 MG CAPXR PO SCH (07:57)
[2021-02-27] MEDS: HEPARIN SOD 5,000 UNIT/0.5 ML VIAL SQ SCH (07:57)
[2021-02-27] MEDS: NICOTINE 14 MG/24 HR PATCH TD SCH (07:58)
[2021-02-27] MEDS: NYSTATIN CR 15 GM TUBE EXT SCH (07:59)
--- NOTE | 2021-02-27 08:41 | Urology Progress Note ---
Date of Service February 27, 2021 Assessment & Plan (1) Renal mass: (2) Adrenal mass: Plan: 65 year-old female patient who is POD #4 robotic assisted laparoscopic left partial nephrectomy and left adrenalectomy with Dr. Robles. - Doing well, pain controlled. - Afebrile, VSS, on 2L NC. - Labs reviewed, Wbc improved today to 10.80 and creatinine 1.22. Hgb 10.8. - Voiding spontaneously without difficulty. - Encourage ambulation with assistance - Continue supportive care, pain management, and antibiotic therapy - Will reassess this afternoon, likely home later today if continues to progress. - Pt reassessed this afternoon. - Oxygen removed this morning, doing well on room air - O2 on room air 90% - Minimal pain - Tolerating diet - Ambulating without dizziness or lightheadedness - Voiding without difficulty - Will arrange postoperative follow-up appointments - Stable for discharge home today - Will discharge home on antibiotics -Cefuroxime x 5 days. - Expected clinical course reviewed with patient, all questions were answered Admission and Anticipated Discharge Date Admission Date: February 23, 2021 Subjective POD # 4 robotic assisted laparoscopic left partial nephrectomy and left adrenalectomy with Dr. Robles. Patient examined at bedside this AM. Alert and awake, comfortable. Reports pain as tolerable with PO pain medications. Denies fevers or chills. Tolerating regular diet. No nausea or vomiting. Voiding without difficulty. No hematuria or dysuria. Feels she is emptying her bladder well. +BM On 2L NC at present No chest pain or shortness of breath. Review of Systems Constitutional: as per Subjective / HPI Gastrointestinal: as per Subjective / HPI Genitourinary: as per Subjective / HPI Physical Exam Constitutional: well developed and well nourished; no acute distress and not ill appearing Respiratory: normal respiratory effort and able to speak in complete sentences; no respiratory distress and no audible wheezes Gastrointestinal (Abdomen): Inspection/Auscultation: abdomen normal to inspection; abdomen not distended Percussion/Palpation: abdomen nontender and no guarding Skin: Incisions appropriate and well-approximated. [place] intact without drainage, erythema, or warmth. Psychiatric: Orientation: alert, oriented x 3 and cooperative Affect: euthymic affect Results & Data ([facility]) Vital Signs (Past 12 Hours) Vital Signs Temp Pulse Pulse Resp BP BP Pulse Ox 02/27/21 07:28 37.0 C 82 19 136/75 90 02/27/21 03:32 37.0 C 86 20 139/68 92 02/27/21 01:16 82 02/26/21 23:19 37.0 C 87 20 135/79 90 PG Care Time/CCT Total # of Minutes Spent Total Time Spent with Patient: Total time spent is greater than 50% in coord ination of care (as documented) at patient's floor/unit and/or counseling patient: Coding Level of Care Code None Diagnoses Renal mass N28.89 Adrenal mass E27.8
[2021-02-27] MEDS: BUMETANIDE 1 MG TAB PO SCH (09:31)
[2021-02-27 11:37] VITALS: PULSE 90; O2SAT 90
[2021-02-27 16:15] VITALS: BP 135/79
--- NOTE | 2021-03-07 10:53 | Discharge Summary ---
Date of Service March 07, 2021 Admission HPI Per Admitting Provider See H&P Admission Exam Per Admitting Provider See H&P Principal Diagnosis Renal Mass Adrenal Mass Discharge Exam General: Alert in no acute distress. HEENT: Normocephalic Atraumatic. Inspection normal. Psychologic: Normal affect. Skin: [place] and Dry. No rashes or visible lesions. Abdomen: Soft Non-distended. No rebound or guarding. Discharge Data Allergies Allergy/AdvReac Type Severity Reaction Status Date / Time No Known Allergies Allergy Verified 02/23/21 06:08 Consultations 02/24/21 10:18 Consult Hospitalist Routine Procedures Performed Operation Date: 02/23/21 07:30 Actual Procedures p Robotic Laparoscopic Assisted Left Partial Nephrectomy,(Left) - Fernandez Robles DO s Left Adrenalectomy(Left) - Fernandez Robles DO Hospital Course (1) Renal mass: (2) Adrenal mass: 65 year-old female patient who is POD #4 robotic assisted laparoscopic left partial nephrectomy and left adrenalectomy with Dr. Robles. - Doing well, pain controlled. - Afebrile, VSS, on 2L NC. - Labs reviewed, Wbc improved today to 10.80 and creatinine 1.22. Hgb 10.8. - Voiding spontaneously without difficulty. - Encourage ambulation with assistance - Continue supportive care, pain management, and antibiotic therapy - Will reassess this afternoon, likely home later today if continues to progress. - Pt reassessed this afternoon. - Oxygen removed this morning, doing well on room air - O2 on room air 90% - Minimal pain - Tolerating diet - Ambulating without dizziness or lightheadedness - Voiding without difficulty - Will arrange postoperative follow-up appointments - Stable for discharge home today - Will discharge home on antibiotics -Cefuroxime x 5 days. - Expected clinical course reviewed with patient, all questions were answered Total Time Total Time Spent Total Time Spent (In Minutes): 10 minutes Total Time Includes: Examination of the Patient, Discharge Planning, Medication Reconciliation and Communication With Other Providers Discharge Plan Discharge Items Patient Disposition: Home - Home Health Services Reason For Visit: Renal Mass Discharge Diagnosis: Renal mass, adrenal mass Activity: Per Instructions section Lifting: No more than 25 pounds Bathing Comment: No tub baths or soaking, okay to shower tomorrow. Sexual Activity: Wait until after follow-up appointment Exercise/Sports: Wait until after follow-up appointment Driving/Machine Use: Do not drive while taking narcotic pain medication Non-emergency contact: Surgeon and Urologist Call non-emergency contact if: your pain is not controlled, your pain is concerning for you, your temperature is above 101, your wound has increased redness, your wound has increased drainage and your wound pain has increased Follow-up/Referrals: Blair Castro PA-C [Primary Care Provider] - Diet: Regular Addtl Attending Provider Instructions: Please take all medications as prescribed and keep all follow-ups as scheduled. Please call our office at [phone] with any questions, concerns or need to reschedule appointments for any reason. We are happy to assist you. The urology office will call you with your follow-up appointments. Please schedule a follow-up with your primary care provided. Recovering at home: We recommend having someone with you for the first few days after surgery to help care for you. It is okay to shower tomorrow. Please avoid swimming, bathing or using hot tub until incisions are well healed. Avoid driving until you are not requiring pain medication any further. Walk at least a few times a day. Increase your distance, as you feel able. Stairs in your home are okay. Please avoid strenuous or sexual activity until your follow-up. We recommend using stool softener (i.e. Colace) to prevent constipation and straining, especially the first two weeks post operatively. Call [facility] at [phone] if you experience: Chest pain or trouble breathing (call 271 or go to the hospital). Fever of 101F or higher Symptoms of infection at incision site, including redness or swelling, warmth, or bad-smelling drainage If you have catheter, and you notice: o Bloody urine or drainage that is dark red or has large clots (Please remember a small amount of blood is normal) o No drainage from the catheter for more than 6 hours o The catheter comes out of your bladder Pain that is not controlled with medicines Pending Studies at Discharge: Yes Studies:: pathology Stand-Alone Forms: My [employer], Smoking Cessation Medications and DC Order Prescriptions: New docusate sodium [Colace] 100 mg capsule 100 mg PO BID Qty: 60 RF: 0 oxycodone-acetaminophen [Percocet] 5-325 mg tablet 1 tab PO TID PRN (Reason: pain) Qty: 14 RF: 0 Continued potassium chloride 20 mEq tablet,ER particles/crystals 20 meq PO UD RF: 0 venlafaxine 150 mg capsule,extended release 24hr 150 mg PO QAM RF: 0 trazodone 150 mg Tablet 150 mg PO HS RF: 0 bumetanide 1 mg Tablet 1 mg PO QAM RF: 0 Keto 2 cap PO HS RF: 0 Discontinued ibuprofen 200 mg Tablet 400 - 600 mg PO Q6H PRN (Reason: Pain) RF: 0 No Action cefuroxime axetil 500 mg tablet 500 mg PO BID 5 Days Qty: 10 RF: 0 Discharge Orders: Discharge Order (Routine); Ordered 02/27/21 Ordered By: Iveth Castle Admission Data Admit Date/Time: 02/23/21 12:45 Attending Provider: Fernandez Robles Admit Provider: Fernandez Robles Primary Care Provider: Blair Castro Other Providers: Abdiel Hanson ; Iveth Boland ; Yossi Alejo ; William Chen ; Rey Teresa ; Noah Mccarthy ; Ozzy Le ; Gabe Leal ; Jeannette Johnson ; Charlotte Maldonado Roy ; Evelyne Vickers ; Yumiko Ortiz ; Rio Scott ; Tacho Cooney ; Kris Herrera ; Iveth Polanco ; Levar Marti ; Randall Aquino ; Gee Bowman ; Yossi Porter ; Nav Ryan ; Naomie Hernandez ; Patrice Davis ; Evelyne Kwong ; Umberto Skelton ; Jim Mead ; Denia Khan ; Wallace Can [facility] Other Interventions: Discharge Summary Assessment (RN) Last Done: 02/27/21 16:13 Coding Level of Care Code D/C DAY MANAGEMENT <30 MINS Diagnoses Renal mass N28.89 Adrenal mass E27.8
--- NOTE | 2021-03-08 05:51 | Coding Query ---
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 Please assist us with the question(s) below: Please review the Pathology report and please document any relevant diagnosis(es) below: Diagnosis(es): Renal Cell Carcinoma. Thank you ALYSSA Diallo [facility]
== END 2021-02-27 16:15 | disposition home health service (06) | DRG 656 ==
LOC: ASU 05:39 → 2N 12:45
DX: K21.9 Gastro-esophageal reflux disease without esophagitis; E27.9 Disorder of adrenal gland, unspecified; C64.2 Malignant neoplasm of left kidney, except renal pelvis; Z68.41 Body mass index [BMI] 40.0-44.9, adult; F17.210 Nicotine dependence, cigarettes, uncomplicated; E66.9 Obesity, unspecified; J96.91 Respiratory failure, unspecified with hypoxia; J44.9 Chronic obstructive pulmonary disease, unspecified; F41.8 Other specified anxiety disorders; R60.0 Localized edema; Z83.3 Family history of diabetes mellitus